=== PATIENT | male | born 1955 | race Caucasian/White ===

== ENCOUNTER 2017-04-21 12:01 | Emergency (ER) | payer SELFPAY ==
[~2017-04-21] VITALS: Ht 177.8 cm; Wt 77.4 kg
[~2017-04-21 12:01] MED LIST: MECL-62 PO
[2017-04-21 12:03] VITALS: BP 139/84; PULSE 72; RESP 20; TEMP 98.3
--- NOTE | 2017-04-21 12:24 | PD ---
HPI Chief Complaint: Injury Time Seen by Provider: 12:13 Travel History International Travel<30 days: No Contact w/Intl Traveler<30days: No Traveled to known affect area: No History of Present Illness HPI 61 yo M c/o L thumb pain after nailing the nail through the pad of the distal phalanx accidentally approx 1 hour ago. pain constant and severe and worse with active/passive ROM. Last tetanus 1.5 years ago. Pt is right handed manual laborer sawmill. No additional injury. Pt denies sensory loss. PFSH Past Medical History Neurologic: Yes (vertigo) Tetanus Vaccination: < 5 Years Past Surgical History Abdominal Surgery: Yes (hernia repair) Appendectomy: Yes Other Surgery: Yes (HERNIA) Social History Alcohol Use: No Tobacco Use: No Substance Use: No Allergies-Medications (Allergen,Severity, Reaction): Coded Allergies: No Known Allergies (Verified , 02/21/16) Reported Meds & Prescriptions Reported Meds & Active Scripts Active Bactrim DS (Sulfamethoxazole-Trimethoprim) 800-160 Mg Tab 1 Tab PO BID Review of Systems Except as stated in HPI: all other systems reviewed are Neg General / Constitutional: No: Fever, Chills Musculoskeletal: Positive: Limited ROM, Pain, No: Weakness Physical Exam Narrative GENERAL: 61 yo M, WNWD, mild distress 2/2 pain SKIN: Warm and dry. HEAD: Atraumatic. Normocephalic. EYES: Pupils equal and round. No scleral icterus. No injection or drainage. ENT: No nasal bleeding or discharge. Mucous membranes pink and moist. NECK: Trachea midline. No JVD. CARDIOVASCULAR: Regular rate and rhythm. RESPIRATORY: No accessory muscle use. Clear to auscultation. Breath sounds equal bilaterally. GASTROINTESTINAL: Abdomen soft, non-tender, nondistended. Hepatic and splenic margins not palpable. MUSCULOSKELETAL: Extremities without clubbing, cyanosis, or edema. No obvious deformities. Along the volar pad of the distal phalanx of the L thumb is a 3cm threaded nail or screw approximately 3mm in diameter, minimal adjacent swelling. +Intact active ROM. +Tenderness to palpation appropriate. NEUROLOGICAL: Awake and alert. No obvious cranial nerve deficits. Motor grossly within normal limits. Five out of 5 muscle strength in the arms and legs. Normal speech. PSYCHIATRIC: Appropriate mood and affect; insight and judgment normal. Data Data Last Documented VS Vital Signs Date Time Temp Pulse Resp B/P (MAP) Pulse Ox O2 Delivery O2 Flow Rate FiO2 04/21/17 13:47 16 04/21/17 12:03 98.3 72 139/84 (102) VS reviewed Orders Orders Cefazolin Inj (Ancef Inj) (04/21/17 12:30) ^ Insert Iv (04/21/17 12:21) Ketorolac Inj (Toradol Inj) (04/21/17 12:30) Finger ([id number]) (04/21/17 12:15) Ed Discharge Order (04/21/17 13:56) MDM Medical Decision Making Medical Screen Exam Complete: Yes Emergency Medical Condition: Yes Medical Record Reviewed: Yes Differential Diagnosis fracture, open fracture, foreign body Narrative Course Last Impressions Finger X-Ray 04/21/17 1215 Signed Impressions: Service Date/Time: Sunday, April 21, 2017 12:31 - CONCLUSION: Nail fragment in the distal left thumb without fracture. Charan Taveras MD Case d/w Dr Coe of hand surgery who was in the hospital and removed the foreign body at the bedside. Bactrim DS script Follow up with Dr Coe as needed as an outpatient Return precautions discussed Diagnosis Primary Impression: Foreign body of thumb, left Qualified Codes: S60.352A - Superficial foreign body of left thumb, initial encounter Referrals: Cristela Coe MD as needed Additional Instructions: You have a choice when it comes to health care, and we are glad that you chose [facility]. Hopefully, we have met your expectations on today's visit. You are welcome to return to [facility] at any time, as we are committed to meeting the health care needs of our community. Med/Other Pt SpecificInfo: Prescription(s) given Scripts Sulfamethoxazole-Trimethoprim (Bactrim DS) 800-160 Mg Tab 1 TAB PO BID for Infection, #20 TAB 0 Refills Prov: George Ybarra MD 04/21/17 Disposition: 01 DISCHARGE HOME Condition: Stable George Ybarra MD Apr 21, 2017 12:24
[2017-04-21] MEDS ORDERED: KETOROLAC TROMETHAMINE 30 MG/ML (IVP) VIAL IV PUSH ONE (12:30)
--- NOTE | 2017-04-21 12:47 | RADRPT ---
EXAM DATE/TIME: 04/21/2017 12:31 [facility] COMPARISON: No previous studies available for comparison. INDICATIONS : Shot by nail gun in left thumb MEDICAL HISTORY : None. SURGICAL HISTORY : None. ENCOUNTER: Initial ACUITY: 1 day PAIN SCORE: 3/10 LOCATION: Left FINDINGS: No fragment is seen coursing obliquely through the volar soft tissues distally of the thumb. The tip is partly protruding medially. Bone is not involved. There is no fracture or subluxation. 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 CONCLUSION: Nail fragment in the distal left thumb without fracture. Charan Taveras MD on April 21, 2017 at 12:43 Board Certified Radiologist. This report was verified electronically.
[2017-04-21 13:47] VITALS: RESP 16
[2017-04-21] MEDS ORDERED: BACT800T5 PO (13:56)
--- NOTE | 2017-04-22 07:50 | MB ---
cc: MEGHAN MCFARLAND DATE OF CONSULTATION: 04/21/2017 REASON FOR CONSULTATION: Retained foreign body, left thumb HISTORY OF PRESENT ILLNESS: Sabrina Adan is a pleasant 61-year-old right-hand dominant male who states that he was working at home using a nail gun when he slipped and accidentally a nail punctured and was lodged in the volar oblique aspect of the left thumb. The patient presented to the hospital immediately. He denies any prior injuries to the left thumb. He reports mild paresthesias over the radial aspect of the thumb. PAST MEDICAL HISTORY Denies. PAST SURGICAL HISTORY: Hernia repair, appendectomy. SOCIAL HISTORY Denies tobacco or illicit drug use. ALLERGIES NO KNOWN DRUG ALLERGIES. PHYSICAL EXAMINATION The patient is alert and oriented. There is obvious threaded screw in an oblique fashion, lodged in the volar aspect of the thumb. Slight decreased sensation on the radial aspect of his thumb. Sensation intact on the ulnar border. Less than 2-second capillary refill. Function intact of the FPL and EPL. X-ray shows retained metallic foreign body consistent with a threaded screw in an oblique fashion across the thumb without any evidence of fracture or involvement of the bone. ASSESSMENT/PLAN A 61-year-old male with a retained screw in the left thumb. Treatment options were discussed with the patient including removing the screw in the emergency room versus operating room. The patient declined intervention in the operating room. He requested attempted removal in the emergency room. He understands he is at risk for infection, persistent paresthesias, injury to the tendon, pain, stiffness and he elected to proceed. Please see attached the procedure note. The patient will be given a prescription for antibiotic and follow up in one week. MD HANNA Wilcox/YOSELYN /12:59 AM /8:13 AM [facility]
--- NOTE | 2017-04-23 12:45 | MR ---
cc: CRISTELA COE MD DATE: 04/21/2017 DIAGNOSIS Retained foreign body, left thumb, screw. PROCEDURE Removal retained foreign body, left thumb. SURGEON Dr. Cristela Coe. ANESTHESIA Local only. SPECIMEN Screw. TOURNIQUET None. INDICATION FOR PROCEDURE Sabrina Adan is a 61-year-old male who presented with a retained screw over the volar oblique aspect of the left thumb. He requested intervention in the emergency room. Risks were explained but not limited to infection, osteomyelitis, pain, injury to digital nerves or tendons, stiffness, persistent paresthesias, and he elected to proceed. DESCRIPTION OF PROCEDURE Informed consent was obtained in the emergency room. Under sterile conditions approximately 8 ccs of 2% lidocaine with no epinephrine was used to perform a digital block over the thumb. Then the left thumb was prepped and draped in normal sterile fashion with Betadine. Then the screw was removed in a counter clockwise manner to unthread the screw. It was removed in its entirety without complication. The entry and exit points were irrigated with saline. Following this the patient could flex and extend the thumb. A bulky dressing was placed. The patient will be given a prescription for antibiotic. I will see him in 1 week. He will come in immediately with any concerns. Cristela Coe MD SH/TLL /12:03 AM /12:28 PM [facility]
== END 2017-04-21 14:24 | disposition home or self-care (01) ==
LOC: PHED 12:01
DX: S60.352A Superficial foreign body of left thumb, initial encounter (principal); W29.4XXA Contact with nail gun, initial encounter; Y92.009 Unspecified place in unspecified non-institutional (private) residence as the place of occurrence of the external cause
CPT/HCPCS: 10121; 73140; 96365; 96375; 99285; J0690; J1885